=== PATIENT | male | born 1950 | race Caucasian/White ===

== ENCOUNTER 2021-08-15 18:56 | Emergency (ER) | payer MEDICARE, SELFPAY ==
--- NOTE | ~2021-08-15 | XR_ITS ---
XR chest 2V DATE: 08/15/2021 19:23 INDICATION: Body aches, chills. History of pneumonia. TECHNIQUE: 2 views COMPARISON: None FINDINGS: There is bilateral hyperinflation, left greater than right, consistent with COPD and right partial lung resection. Normal heart size. Prominent central pulmonary arteries suggesting pulmonary hypertension. No pulmonary infiltrate or consolidation, pleural effusion or pulmonary vascular congestion or pneumo thorax is detected. Diffuse osteopenia. Degenerative spurring of the thoracic spine. IMPRESSION: COPD, pulmonary artery hypertension Status post right partial lung resection No active disease Reviewed, dictated and finalized at location A.
[2021-08-15 19:04] VITALS: BP 127/74; PULSE 56; RESP 20; TEMP 37.1; O2SAT 100
--- NOTE | 2021-08-15 19:06 | ED.URI ---
HPI - URI/Sore Throat General Chief Complaint: Upper Respiratory Infection Stated Complaint: cold chills Time Seen by Provider: 08/15/21 19:07 Source: patient and RN notes reviewed Mode of arrival: ambulatory Limitations: no limitations History of Present Illness HPI Narrative: 71 yo male presents to the [facility] with C/O I feel awful. Patient states he started with generalized Headache, body aches, chills that started last night. No treatment prior to arrival Denies abdominal pain or chest pain. Denies cough. Denies fevers states that she is very concerned over Covid even though they have both been vaccinated. Wanted him tested Related Data Home Medications Medication Instructions Recorded Confirmed alprazolam 0.5 mg PO QID 08/15/21 08/15/21 apixaban [Eliquis] 5 mg PO DAILY 08/15/21 08/15/21 citalopram 20 mg PO DAILY 08/15/21 08/15/21 donepezil 10 mg PO DAILY 08/15/21 08/15/21 famotidine 40 mg PO BID 08/15/21 08/15/21 finasteride 5 mg PO DAILY 08/15/21 08/15/21 fluticasone furoate-vilanterol 1 inh INHALATION DAILY 08/15/21 08/15/21 [Breo Ellipta] gabapentin 800 mg PO QID 08/15/21 08/15/21 hydrocodone-acetaminophen 1 tablet PO QID 08/15/21 08/15/21 memantine 10 mg PO BID 08/15/21 08/15/21 pravastatin 40 mg PO DAILY 08/15/21 08/15/21 tamsulosin 0.4 mg PO DAILY 08/15/21 08/15/21 Allergies Allergy/AdvReac Type Severity Reaction Status Date / Time No Known Allergies Allergy Verified 08/15/21 19:20 Review of Systems Review of Systems: All systems reviewed & are unremarkable except as noted in HPI and below Constitutional: Constitutional: Reports as per HPI, Reports chills, Reports fatigue and Denies fever(s) Eyes: Eyes: Reports no additional eye complaints ENT: Reports system reviewed and no additional complaints, except as documented, Denies vertigo, Denies dizziness, Denies nasal congestion and Denies sore throat Cardiovascular: Cardiovascular: Reports no additional cardiovascular complaints and Denies chest pain Respiratory: Respiratory: Reports no additional respiratory complaints, Denies cough, Denies dyspnea and Denies wheezing Gastrointestinal: Gastrointestinal: Reports as per HPI, Denies abdominal pain, Reports nausea and Denies vomiting Genitourinary: Genitourinary: Reports no additional male genitourinary complaints Musculoskeletal: Musculoskeletal: Reports as per HPI and Reports myalgias Integumentary/Breasts: Skin/Breast: Reports system reviewed and no additional complaints, except as docu Neurologic: Reports as per HPI and Reports headache(s) Psychiatric: Psychiatric: Reports no additional psychiatric complaints Allergic/Immunologic: Allergic/Immunologic: Reports no additional allergic/immunologic complaints [facility] Past Medical History Medical History (Updated 08/15/21 @ 20:04 by Danyell Colon) Alzheimer's dementia Anxiety and depression Dementia Enlarged prostate High cholesterol Hypertension Pulmonary embolism Surgical History Surgical History (Updated 08/15/21 @ 20:03 by Danyell Colon) History of lung surgery Partial right lower lung removal due to cancer Social History Social History (Updated 08/15/21 @ 20:03 by Danyell Colon) Substance use: never Living arrangements: with family Occupation/Education: retired Gender identity (if verbalized by the patient): Male Comments At the time of my signature, I reviewed and agree with the nursing past medical, surgical, social, and family history. There is no relevant family history pertinent to the patient complaint. Exam Const: General: alert and ill appearing acutely and chronically Nutritional Appearance: thin Orientation/consciousness: patient oriented x3 Limitations: no limitations HENMT: Head: normal to inspection Ears: external ears normal, TM's normal bilaterally and EAC's normal Eyes: Conjunctivae: conjunctivae normal Pupils: Equal, round and reactive pupils present Neck: Neck: normal
[2021-08-15 19:21] VITALS: BP 127/74; PULSE 56; RESP 20; TEMP 37.1; O2SAT 100
[2021-08-17 18:19] LABS: SARS-CoV-2 RNA PCR Negative
== END 2021-08-15 20:07 | disposition home or self-care (01) ==
PROVIDERS: Emergency Provider Nurse Practitioner
DX: B34.9 Viral infection, unspecified (principal); G30.9 Alzheimer's disease, unspecified; F02.80 Dementia in other diseases classified elsewhere, unspecified severity, without behavioral disturbance, psychotic disturbance, mood disturbance, and anxiety; F32.9 Major depressive disorder, single episode, unspecified; F41.9 Anxiety disorder, unspecified; I10 Essential (primary) hypertension; Z20.822 Contact with and (suspected) exposure to COVID-19; Z79.01 Long term (current) use of anticoagulants; Z79.891 Long term (current) use of opiate analgesic
CPT/HCPCS: 71046; 87426; 87804; 99213; C9803; G0463; U0003; U0005

== ENCOUNTER 2023-05-18 18:35 | Emergency (ER) | payer OTHER, MEDICARE, SELFPAY ==
[2023-05-18 18:42] VITALS: BP 135/79; PULSE 86; RESP 20; TEMP 36.8; O2SAT 100
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
== END 2023-05-18 19:02 | disposition short-term general hospital (02) ==
LOC: EXPBETH 18:41
PROVIDERS: Emergency Provider Nurse Practitioner Family
DX: S09.90XA Unspecified injury of head, initial encounter (principal); V49.40XA Driver injured in collision with unspecified motor vehicles in traffic accident, initial encounter; M54.2 Cervicalgia; Z86.718 Personal history of other venous thrombosis and embolism; Z79.01 Long term (current) use of anticoagulants; G30.9 Alzheimer's disease, unspecified; F02.80 Dementia in other diseases classified elsewhere, unspecified severity, without behavioral disturbance, psychotic disturbance, mood disturbance, and anxiety; N40.0 Benign prostatic hyperplasia without lower urinary tract symptoms; E78.00 Pure hypercholesterolemia, unspecified; I10 Essential (primary) hypertension; Z86.711 Personal history of pulmonary embolism; F41.9 Anxiety disorder, unspecified; F32.A Depression, unspecified
CPT/HCPCS: 99212; G0463